=== PATIENT | male | born 1975 ===

== ENCOUNTER 2017-07-06 09:44 | Emergency (ER) | payer OTHER ==
[2017-07-06 09:58] VITALS: BP 148/72; PULSE 74; RESP 18; TEMP 98.2; O2SAT 100
[2017-07-06] MEDS ORDERED: Sodium Chloride 0.9% 1,000 ML IV STA (10:02)
--- NOTE | 2017-07-06 10:07 | ED PDOC ---
HPI: Abdomen Time Seen by Provider: 07/06/17 09:55 Chief Complaint (Nursing): Abdominal Pain Chief Complaint (Provider): Abdominal Pain History Per: Patient History/Exam Limitations: no limitations Onset/Duration Of Symptoms: Days (x3) Current Symptoms Are (Timing): Still Present Additional Complaint(s): Keenan Coyne is a 41 year old male with no significant past medical history who presents to the ED complaining of epigastric pain that radiates to his back x3 days. Denies nausea, vomiting or diarrhea. Patient is also complaining of a non-productive cough. Denies fever or shortness of breath. PMD: Provider TBD Past Medical History Reviewed: Historical Data, Nursing Documentation, Vital Signs Vital Signs: Last Vital Signs Temp 98.2 F 07/06/17 09:56 Pulse 74 07/06/17 09:56 Resp 18 07/06/17 09:56 BP 148/72 07/06/17 09:56 Pulse Ox 100 07/06/17 10:11 - Family History Family History: States: Unknown Family Hx - Home Medications Home Medications: Ambulatory Orders Medication Instructions Recorded Cephalexin [cephalexin] 500 mg PO Q6 #28 cap 11/18/16 Famotidine [Pepcid] 20 mg PO Q12 #20 tab 07/06/17 - Allergies Allergies/Adverse Reactions: Allergies Allergy/AdvReac Type Severity Reaction Status Date / Time No Known Allergies Allergy Unverified 11/18/16 20:02 Review of Systems ROS Statement: Except As Marked, All Systems Reviewed And Found Negative Constitutional: Negative for: Fever Respiratory: Positive for: Cough. Negative for: Shortness of Breath Gastrointestinal: Positive for: Abdominal Pain (epigastric). Negative for: Nausea, Vomiting, Diarrhea Musculoskeletal: Positive for: Back Pain (radiating from abdomen) Physical Exam - Reviewed Nursing Documentation Reviewed: Yes Vital Signs Reviewed: Yes - Physical Exam Appears: Positive for: Non-toxic, No Acute Distress Head Exam: Positive for: ATRAUMATIC Skin: Positive for: Normal Color Eye Exam: Positive for: Normal appearance Cardiovascular/Chest: Positive for: Regular Rate, Rhythm Respiratory: Positive for: CNT, Normal Breath Sounds Gastrointestinal/Abdominal: Positive for: Tenderness (Epigastric, mild). Negative for: Rebound Extremity: Positive for: Normal ROM. Negative for: Tenderness, Swelling Neurologic/Psych: Positive for: Alert, Oriented (x3) - Laboratory Results Result Diagrams: 07/06/17 10:10 07/06/17 10:10 - ECG O2 Sat by Pulse Oximetry: 100 (RA) Medical Decision Making Medical Decision Making: Time: 1002 Initial Impression: Gastritis Plan: --CMP --Lipase --CBC w/ differential --Chest X-Ray 2 views --Sodium Chloride 0.9% 1,000 ml IV --Pepcid 20 mg IVP --Reevaluation Scribe Attestation: Documented by Chaparro Gamboa acting as a scribe for Ari Estes MD. Scribe Attestation: All medical record entries made by the Scribe were at my direction and personally dictated by me. I have reviewed the chart and agree that the record accurately reflects my personal performance of the history, physical exam, medical decision making, and the department course for this patient. I have also personally directed, reviewed, and agree with the discharge instructions and disposition. Disposition - Clinical Impression Clinical Impression: Gastritis - Patient ED Disposition Is Patient to be Admitted: No Counseled Patient/Family Regarding: Studies Performed, Diagnosis, Need For Followup, Rx Given - Disposition Referrals: [facility] [Outside] Disposition: Routine/Home Disposition Time: 10:32 Condition: FAIR Prescriptions: Famotidine [Pepcid] 20 mg PO Q12 #20 tab Instructions: Gastritis (ED) Forms: [employer] (Hebrew) Print Language: ESTONIAN
[2017-07-06 10:13] LABS: EOS # 0.2 K/uL (0.0-0.7); EOS % 4.8 % (0.0-4.0); HEMOGLOBIN 15.6 g/dL (12.0-18.0); LYMPH % 21.9 % (20.0-40.0); MEAN CELL VOLUME 89.3 fl (80.0-94.0); MEAN CORPUSCULAR HEMOGLOBIN 30.3 pg (27.0-31.0); MEAN CORPUSCULAR HGB CONC 33.9 g/dL (33.0-37.0); MONO # 0.3 K/uL (0.0-0.8); MONO % 6.8 % (0.0-10.0); NEUT # 2.9 K/uL (1.8-7.0); NEUT % 65.5 % (50.0-75.0); NRBC % 0.1 % (0.0-0.0); RBC 5.15 Mil/uL (4.40-5.90); RED CELL DISTRIBUTION WIDTH 13.1 % (11.5-14.5); WHITE BLOOD COUNT 4.5 K/uL (4.8-10.8)
[2017-07-06 10:28] LABS: ALB/GLOB RATIO 1.3 (1.0-2.1); ALBUMIN 4.2 g/dL (3.5-5.0); ALT/SGPT 42 U/L (21-72); AST/SGOT 30 U/L (17-59); BLOOD UREA NITROGEN 10 mg/dl (9-20); CALCIUM 8.7 mg/dL (8.4-10.2); GFR AFRICAN-AMERICAN > 60; GFR NON-AFRICAN AMERICAN > 60; LIPASE 92 U/L (23-300)
--- NOTE | 2017-07-06 10:52 | RAD ---
HISTORY: cough COMPARISON: No prior. TECHNIQUE: Chest PA and lateral FINDINGS: LUNGS: No active pulmonary disease. PLEURA: No significant pleural effusion identified. No pneumothorax apparent. CARDIOVASCULAR: Normal. OSSEOUS STRUCTURES: No significant abnormalities. VISUALIZED UPPER ABDOMEN: Normal. OTHER FINDINGS: None. IMPRESSION: No active disease.
== END 2017-07-06 11:30 | disposition home or self-care (01) ==
LOC: H.ER 09:44
DX: K29.70 Gastritis, unspecified, without bleeding (principal)
CPT/HCPCS: 71046; 80053; 83690; 85025; 96361; 96374; 99281; J7040

== ENCOUNTER 2017-12-15 09:24 | Emergency (ER) | payer OTHER ==
[2017-12-15 10:01] VITALS: BMI 24.9
[2017-12-15 10:02] VITALS: BP 124/82; PULSE 67; RESP 16; TEMP 98.5; O2SAT 97
--- NOTE | 2017-12-15 10:36 | ED PDOC ---
HPI: Headache Time Seen by Provider: 12/15/17 10:20 Chief Complaint (Nursing): Headache Chief Complaint (Provider): Headache, feverish, body pain History Per: Patient History/Exam Limitations: no limitations Onset/Duration Of Symptoms: Days (5) Current Symptoms Are (Timing): Still Present Quality: Dull Preceeding Symptoms: None Associated Symptoms: denies: Photophobia, Blurred Vision, Nausea, Vomiting, Extremity Weakness Additional Complaint(s): 42 yo male with no medical problems presents with 5 days of frontal headache, feeling feverish and body pain. Pt denies cough but reported cough in triage. Pt states he did not take temperature at home but has been taking motrin for headache, body aches and fever. Pt states this is not the worst headache of his life. Past Medical History Reviewed: Historical Data, Nursing Documentation, Vital Signs Vital Signs: Last Vital Signs Temp 98.5 F 12/15/17 10:01 Pulse 67 12/15/17 10:01 Resp 16 12/15/17 10:01 BP 124/82 12/15/17 10:01 Pulse Ox 97 12/15/17 10:01 - Medical History PMH: No Chronic Diseases - Surgical History Surgical History: No Surg Hx - Family History Family History: States: Unknown Family Hx - Living Arrangements Living Arrangements: With Family - Social History Current smoker - smoking cessation education provided: No - Home Medications Home Medications: Ambulatory Orders Medication Instructions Recorded Cephalexin [cephalexin] 500 mg PO Q6 #28 cap 11/18/16 Famotidine [Pepcid] 20 mg PO Q12 #20 tab 07/06/17 Amoxicillin/Clavulanate [Augmentin 1 tab PO BID #20 tab 12/15/17 875 MG-125 MG] - Allergies Allergies/Adverse Reactions: Allergies Allergy/AdvReac Type Severity Reaction Status Date / Time No Known Allergies Allergy Verified 12/15/17 10:01 Review of Systems ROS Statement: Except As Marked, All Systems Reviewed And Found Negative Constitutional: Positive for: Fever, Chills, Malaise ENT: Negative for: Ear Pain Cardiovascular: Negative for: Chest Pain Respiratory: Negative for: Shortness of Breath Neurological: Positive for: Headache. Negative for: Altered Mental Status, Dizziness Physical Exam - Reviewed Nursing Documentation Reviewed: Yes Vital Signs Reviewed: Yes - Physical Exam Appears: Positive for: Well, Non-toxic, No Acute Distress Head Exam: Positive for: ATRAUMATIC, NORMAL INSPECTION, NORMOCEPHALIC Skin: Positive for: Normal Color, Warm, DRY Eye Exam: Positive for: Normal appearance ENT: Positive for: Normal ENT Inspection, Other (Tenderness of the frontal sinuses to percussion) Neck: Positive for: Normal, Painless ROM Cardiovascular/Chest: Positive for: Regular Rate, Rhythm Respiratory: Positive for: CNT, Normal Breath Sounds Gastrointestinal/Abdominal: Positive for: Normal Exam, Soft Back: Positive for: Normal Inspection Extremity: Positive for: Normal ROM Neurologic/Psych: Positive for: Alert, Oriented - ECG O2 Sat by Pulse Oximetry: 97 Disposition - Clinical Impression Clinical Impression: Acute sinusitis - Patient ED Disposition Is Patient to be Admitted: No Counseled Patient/Family Regarding: Diagnosis, Need For Followup, Rx Given - Disposition Disposition: Routine/Home Disposition Time: 10:38 Condition: STABLE Prescriptions: Amoxicillin/Clavulanate [Augmentin 875 MG-125 MG] 1 tab PO BID #20 tab Instructions: Sinusitis, Adult (DC) Forms: [employer] (Swazi) Print Language: BELARUSIAN
== END 2017-12-15 11:09 | disposition home or self-care (01) ==
LOC: H.ER 09:24
DX: J01.90 Acute sinusitis, unspecified (principal)

== ENCOUNTER 2018-07-22 18:35 | Emergency (ER) | payer SELFPAY ==
[2018-07-22 18:36] VITALS: BMI 24.9
[2018-07-22 19:23] VITALS: RESP 18
--- NOTE | 2018-07-22 21:33 | ED PDOC ---
HPI: Back Time Seen by Provider: 07/22/18 20:19 Chief Complaint (Nursing): Back Pain Chief Complaint (Provider): Back Pain History Per: Patient History/Exam Limitations: no limitations Onset/Duration Of Symptoms: Days (2x days) Current Symptoms Are (Timing): Still Present Severity: Moderate Previous Symptoms: Back Pain Associated Symptoms: None Exacerbating Factor(s): Other (bending forward) Additional Complaint(s): 42 year old male with a history of chronic back pain presents to the ED for an evaluation of back pain that started 2x days ago. Patient reports having an episode of similar back pain 1x year ago, and was given ibuprofen with improvement of pain. Patient reports that the pain went away, however 2x days ago he noticed recurring right sided center of the back pain which worsens when he bends forward. Patient reports taking advil with some relief, last dose was last night, but the pain persisted today prompting ED visit. Patient denies taking any medications for pain today. Otherwise, patient denies having dysuria, fevers, chills, night sweats, numbness or tingling of the lower extremities, history of hypertension, history of diabetes, or a history of hyperlipidemia. PMD: None provided. Past Medical History Reviewed: Historical Data, Nursing Documentation, Vital Signs Vital Signs: Last Vital Signs Temp 98.2 F 07/22/18 19:20 Pulse 63 07/22/18 19:20 Resp 18 07/22/18 19:20 BP 147/91 H 07/22/18 19:20 Pulse Ox 98 07/22/18 19:20 JEZ Report Viewed: Yes - Medical History PMH: Chronic Pain (back pain) Denies: Diabetes, HTN, Hyperlipidemia - Surgical History Surgical History: No Surg Hx - Family History Family History: States: No Known Family Hx - Social History Current smoker - smoking cessation education provided: No Alcohol: None Drugs: Denies - Immunization History Hx Tetanus Toxoid Vaccination: No Hx Influenza Vaccination: No Hx Pneumococcal Vaccination: No - Home Medications Home Medications: Ambulatory Orders Medication Instructions Recorded Amoxicillin/Clavulanate [Augmentin 1 tab PO BID #20 tab 12/15/17 875 MG-125 MG] Ibuprofen [Motrin] 600 mg PO TID #30 tab 12/17/17 Cyclobenzaprine [Cyclobenzaprine 10 mg PO Q8 PRN 7 Days tab 07/23/18 HCl] Ibuprofen [Motrin Tab] 800 mg PO Q6 PRN 7 Days tab 07/23/18 - Allergies Allergies/Adverse Reactions: Allergies Allergy/AdvReac Type Severity Reaction Status Date / Time No Known Allergies Allergy Verified 12/17/17 00:02 Review of Systems ROS Statement: Except As Marked, All Systems Reviewed And Found Negative Constitutional: Negative for: Fever, Chills, Sweats Genitourinary Male: Negative for: Dysuria Musculoskeletal: Positive for: Back Pain (right sided center of the back pain) Neurological: Negative for: Numbness ((-) tingling of lower extremities) Physical Exam - Reviewed Nursing Documentation Reviewed: Yes Vital Signs Reviewed: Yes - Physical Exam Appears: Positive for: Well, Non-toxic, No Acute Distress Head Exam: Positive for: ATRAUMATIC, NORMOCEPHALIC Cardiovascular/Chest: Positive for: Regular Rate, Rhythm Respiratory: Positive for: Normal Breath Sounds Gastrointestinal/Abdominal: Positive for: Normal Exam, Soft. Negative for: Tenderness Back: Positive for: Other (tenderness on palpation of right sided center of the back. (-) spinal tenderness. (-) erythema, (-) ecchymosis, (-) swelling noted.). Negative for: L CVA Tenderness, R CVA Tenderness Neurologic/Psych: Positive for: Alert, Oriented (3x) - ECG O2 Sat by Pulse Oximetry: 98 (RA) Pulse Ox Interpretation: Normal Medical Decision Making Medical Decision Makin:19 Initial impression: 42 year old male with acute on chronic back pain. Initial plan: * udip * flexeril 10 mg PO once * toradol 30 mg IM once * reevaluation * 23:50: re-evaluated: pain much improved, able to walk with steady gait, urine dip negative for LE or nitrates. Stable for d/c home. Scribe Attestation: Documented Michael Pina, acting as a scribe for Lois Landon PA-C. Provider Scribe Attestation: All medical record entries made by the Scribe were at my direction and personally dictated by me. I have reviewed the chart and agree that the record accurately reflects my personal performance of the history, physical exam, medical decision making, and the department course for this patient. I have also personally directed, reviewed, and agree with the discharge instructions and disposition. Disposition - Clinical Impression Clinical Impression: Back strain - Patient ED Disposition Is Patient to be Admitted: No Counseled Patient/Family Regarding: Diagnosis, Need For Followup, Rx Given - Disposition Referrals: [facility] [Outside] Disposition: Routine/Home Disposition Time: 00:10 Condition: STABLE Additional Instructions: Take Flexeril and Ibuprofen as needed for back pain. Return to ER if you are unable to walk or if you develop fevers with your back pain. Care when taking Flexeril as it can make you sleepy. Prescriptions: Cyclobenzaprine [Cyclobenzaprine HCl] 10 mg PO Q8 PRN 7 Days tab PRN Reason: Pain, Moderate (4-7) Ibuprofen [Motrin Tab] 800 mg PO Q6 PRN 7 Days tab PRN Reason: Pain, Moderate (4-7) Instructions: Muscle Strain (DC) Forms: [facility] (Italian) Print Language: AMHARIC
[2018-07-23 00:17] VITALS: BP 122/70; PULSE 78; TEMP 98; O2SAT 100
== END 2018-07-23 00:16 | disposition home or self-care (01) ==
LOC: H.ER 18:35
DX: S39.012A Strain of muscle, fascia and tendon of lower back, initial encounter (principal); G89.29 Other chronic pain; X58.XXXA Exposure to other specified factors, initial encounter
CPT/HCPCS: 96372; 99283; J1885